=== PATIENT | female | born 1940 | race Caucasian/White ===

== ENCOUNTER 2024-08-30 10:08 | Outpatient (CLI) | payer OTHER | END 2024-08-31 13:17 | disposition home or self-care (01) | LOC: TOM 10:08 | DX: K56.690 Other partial intestinal obstruction (principal); K57.32 Diverticulitis of large intestine without perforation or abscess without bleeding; Z95.0 Presence of cardiac pacemaker; I50.1 Left ventricular failure, unspecified ==